=== PATIENT | male | born 1960 | race African-American/Black ===

== ENCOUNTER 2017-09-07 17:30 | Emergency (ER) | payer MEDICAID ==
[~2017-09-07] VITALS: Ht 182.9 cm; Wt 81.6 kg
[2017-09-07] MEDS ORDERED: ASPIR 8181 MG ORAL (17:42)
[2017-09-07] MEDS ORDERED: METOPROLOL TART25 MG ORAL (17:42)
[2017-09-07] MEDS: Albuterol ud Inhalation HHN SCH ×5 (17:58→19:36)
[2017-09-07] MEDS: Ipratropium 0.02% Inh Soln 2.5ml UD HHN SCH ×2 (17:58→19:08)
[2017-09-07 18:00] VITALS: BP 161/78
--- NOTE | 2017-09-07 18:06 | Emergency Room Report ---
History of Present Illness General Chief Complaint: General Complaint Source: Patient Present Illness HPI 57-year-old male, history of hypertension, presenting with 3 days of shortness of breath, cough, generalized weakness and pain. Patient has been coughing, dry. Seeing that he cannot breathe. At rest and on exertion. Also complaining of chest pain mostly when he coughs Complaining of subjective fever and chills. States that he smokes cigars but no formal diagnosis of COPD Allergies: Coded Allergies: No Known Allergies (Unverified , 09/07/17) Patient History Past Medical History: see triage record Past Surgical History: none Pertinent Family History: none Reviewed Nursing Documentation: PMH: Agreed, PSxH: Agreed Nursing Documentation-PMH Hx Hypertension: Yes Review of Systems All Other Systems: negative except mentioned in HPI Physical Exam Vital Signs Date Time Temp Pulse Resp B/P (MAP) Pulse Ox O2 Delivery O2 Flow Rate FiO2 09/07/17 17:39 98.1 59 21 161/78 100 Room Air 98.1 Sp02 EP Interpretation: reviewed, normal General Appearance: alert, GCS 15, non-toxic, moderate distress Head: normocephalic, atraumatic Eyes: bilateral eye normal inspection, bilateral eye PERRL, bilateral eye EOMI ENT: normal ENT inspection, normal pharynx, normal voice, moist mucus membranes Neck: normal inspection, full range of motion, supple Respiratory: respiratory distress, other - coarse/wheezing L sided Cardiovascular #1: normal inspection, regular rate, rhythm, normal capillary refill Cardiovascular #2: 2+ radial (R), 2+ radial (L) Gastrointestinal: normal inspection, non tender, soft, non-distended, no guarding, other - nontender all throughout abdomen Musculoskeletal: normal inspection, back normal, normal range of motion, non- tender Neurologic: normal inspection, alert, oriented x3, responsive, motor strength/ tone normal, sensory intact, normal gait, speech normal Psychiatric: normal inspection, judgement/insight normal, memory normal Skin: normal inspection, normal color, no rash, warm/dry, well hydrated, normal turgor Procedures Critical Care Time Critical Care Time 40 minutes of CC time 57-year-old male with generalized weakness, cough, shortness of breath VS: tachypneic PLAN: IV access, labs, troponin, and nebulizers, steroids Anticipate admission to Tele CC time also includes review of labs, review of EMR, discussion with family and paperwork from SNF, d/w hospitalist CC could include dosing of pressors, additional Abx CC time does not include procedures Medical Decision Making Diagnostic Impression: Primary Impression: Respiratory distress Additional Impressions: Wheezing Elevated troponin ER Course 57-year-old male, generalized weakness, cough, shortness of breath DDX: Viral URI, pneumonia, ?copd exacerbation ACS although less likely, chest pain only when patient coughs Plan: Obtain labs, ua, ucx, CXR, EKG ER course: Pt wheezing - tx with nebs mild elevation of troponin- no cp, aspirin given patient stable for xfer pt initially not wanting to be xferred bt myself and xonvinced him to stay Disposition: Patient is to be transferred to [place] due to insurance purposes DW Dr Finch who has accepted transfer Please note that this Emergency Department Report was dictated using [employer] lifter technology software, occasionally this can lead to erroneous entry secondary to interpretation by the dictation equipment EKG Diagnostic Results EP Interpretation: Yes Rate: normal Rhythm: NSR ST Segments: No acute changes ASA given to patient: No Rhythm Strip EP Interpretation: Yes Rate: 60 Rhythm: NSR, no PVCs, no ectopy Chest X-ray CXR: Ordered: Yes 1 view Indication: Shortness of breath EP interpretation: Yes Interpretation: No consolidation, no effusion, no PTX, no acute cardiopulmonary disease Impression: No acute disease Electronically signed by Ramón Rushing MD Laboratory Tests Test 09/07/17 17:51 White Blood Count 2.4 K/UL (4.8-10.8) L Red Blood Count 5.20 M/UL (4.70-6.10) Hemoglobin 16.9 G/DL (14.2-18.0) Hematocrit 49.8 % (42.0-52.0) Mean Corpuscular Volume 96 FL (80-99) Mean Corpuscular Hemoglobin 32.6 PG (27.0-31.0) H Mean Corpuscular Hemoglobin Concent 34.0 G/DL (32.0-36.0) Red Cell Distribution Width 11.4 % (11.6-14.8) L Platelet Count 187 K/UL (150-450) Mean Platelet Volume 7.8 FL (6.5-10.1) Neutrophils (%) (Auto) 41.8 % (45.0-75.0) L Lymphocytes (%) (Auto) 39.1 % (20.0-45.0) Monocytes (%) (Auto) 18.4 % (1.0-10.0) H Eosinophils (%) (Auto) 0.0 % (0.0-3.0) Basophils (%) (Auto) 0.7 % (0.0-2.0) Sodium Level 137 MMOL/L (136-145) Potassium Level 3.5 MMOL/L (3.5-5.1) Chloride Level 98 MMOL/L (98-107) Carbon Dioxide Level 30 MMOL/L (21-32) Anion Gap 9 mmol/L (5-15) Blood Urea Nitrogen 18 mg/dL (7-18) Creatinine 1.3 MG/DL (0.55-1.30) Estimate Glomerular Filtration Rate 56.5 mL/min (>60) Glucose Level 123 MG/DL (74-106) H Calcium Level 9.7 MG/DL (8.5-10.1) Total Bilirubin 0.9 MG/DL (0.2-1.0) Aspartate Amino Transferase (AST) 43 U/L (15-37) H Alanine Aminotransferase (ALT) 34 U/L (12-78) Alkaline Phosphatase 111 U/L (46-116) Troponin I 0.064 ng/mL (0.000-0.056) Pro-B-Type Natriuretic Peptide 370 pg/mL (0-125) H Total Protein 8.4 G/DL (6.4-8.2) H Albumin 4.3 G/DL (3.4-5.0) Globulin 4.1 g/dL Albumin/Globulin Ratio 1.0 (1.0-2.7) HIV (1&2) Antibody Rapid Negative (NEGATIVE) Last Vital Signs Date Time Temp Pulse Resp B/P (MAP) Pulse Ox O2 Delivery O2 Flow Rate FiO2 09/07/17 17:39 98.1 59 21 161/78 100 Room Air 98.1 Disposition: ADMITTED INPATIENT Condition: Serious Ramón Rushing M.D. Sep 07, 2017 18:06
[2017-09-07 18:15] LABS: HEMATOCRIT 49.8 % (42.0-52.0); HEMOGLOBIN 16.9 G/DL (14.2-18.0); MEAN CORPUSCULAR VOLUME 96 FL (80-99); PLATELET COUNT 187 K/UL (150-450); RED CELL DISTRIBUTION WIDTH 11.4 % (11.6-14.8); WHITE BLOOD COUNT 2.4 K/UL (4.8-10.8)
[2017-09-07 18:17] LABS: BASOPHILS % (AUTO) 0.7 % (0.0-2.0); LYMPHOCYTES % (AUTO) 39.1 % (20.0-45.0); MONOCYTES % (AUTO) 18.4 % (1.0-10.0); NEUTROPHILS % (AUTO) 41.8 % (45.0-75.0)
[2017-09-07] MEDS ORDERED: HYDROCHLOROTHIA25 MG ORAL (18:21)
[2017-09-07 18:32] LABS: ANION GAP 9 mmol/L (5-15); BLOOD UREA NITROGEN 18 mg/dL (7-18); CALCIUM 9.7 MG/DL (8.5-10.1); CARBON DIOXIDE 30 MMOL/L (21-32); CHLORIDE 98 MMOL/L (98-107); CREATININE 1.3 MG/DL (0.55-1.30); POTASSIUM 3.5 MMOL/L (3.5-5.1); SODIUM 137 MMOL/L (136-145)
[2017-09-07 18:39] LABS: ALANINE AMINOTRANSFERASE 34 U/L (12-78); ALBUMIN 4.3 G/DL (3.4-5.0); ALKALINE PHOSPHATASE 111 U/L (46-116); ASPARTATE AMINO TRANSFERASE 43 U/L (15-37); BILIRUBIN,TOTAL 0.9 MG/DL (0.2-1.0)
[2017-09-07] MEDS ORDERED: Solu-MEDROL 125mg Inj IVP ONE (19:00)
[2017-09-07] MEDS ORDERED: Ketorolac 30mg Inj IV ONE (20:30)
[2017-09-07 22:30] VITALS: BP 161/78
--- NOTE | 2017-09-08 11:22 | Diagnostic Imaging Report ---
Indication: Dyspnea Comparison: None A single view chest radiograph was obtained. Findings: Cardiomediastinal appearance is within normal limits for age. Pulmonary vascularity is appropriate. The diaphragmatic contour is smooth and costophrenic angles are sharp. No pleural effusions are identified. The bones are unremarkable. Impression: No acute findings
--- NOTE | 2017-09-08 12:51 | Cardiology Report ---
APPROVED REPORT EKG Measurement Heart [id number] Sinus bradycardia Possible Left atrial enlargement Left ventricular hypertrophy Nonspecific T wave abnormality Prolonged QT Abnormal ECG
== END 2017-09-07 22:30 | disposition short-term general hospital (02) ==
LOC: EMR 18:14
DX: R06.03 Acute respiratory distress (principal); R79.89 Other specified abnormal findings of blood chemistry; R06.2 Wheezing; I10 Essential (primary) hypertension; R53.1 Weakness; R05 Cough
CPT/HCPCS: 36415; 71045; 80053; 83880; 84484; 85025; 86703; 93005; 94640; 94664; 99291; J1885; J2930